=== PATIENT | female | born 1965 | race Caucasian/White ===

== ENCOUNTER → 2019-03-13 11:26 | Outpatient (CLI) | payer OTHER ==
[~2019-03-13] VITALS: Ht 172.7 cm; Wt 83.2 kg
--- NOTE | ~2019-03-13 | HEMODYNAMI ---
PATIENT:CAMILO CERVANTES MEDICAL RECORD: [id number] : 67 LOCATION:DDANILO ADMISSION DATE: 03/13/19 Generatedon:03/13/201915:05 Patient name: CAMILO CERVANTES Patient #: [id number] : 1965 Date of study: 03/13/2019 Page: Of Hemodynamic Procedure Report Patient Data Patient Demographics First Name: CAMILO Gender: Female Last Name: BILLY : 1965 Middle Initial: LATISHA Age: 54 year(s) Patient #: [id number] Race: Unknown SSN: [id number] Additional ID: [id number] Contact details [address]: [address] [place] [address] State: [place] City: [place] Zip code: [address] Past Medical History Allergies Allergen Reaction Date Comments Reported Other allergy 03/13/2019 benzoin Admission Admission Data Admission Date: 03/13/2019 Admission Time: 11:26 Insurance Payor: Private health insurance Height (in.): 69 BSA: 1.99 (m2) Height (cm.): 175.26 BMI: 27.02 (kg/m2) Weight (lbs.): 183 Weight (kg.): 83.01 Lab Results Lab Result Date: 03/13/2019 Lab Result Time: 0:00 Biochemistry Name Units Result Min Max BUN mg/dl 18 --(---*)-- 7 18 Creatinine mg/dl 0.7 --(*---)-- 0.6 1.3 eGFR ml/min 90 --(*---)-- 90 120 NONAFRICAN CBC Name Units Result Min Max Hemoglobin g/dl 13.1 -*(----)-- 13.5 17.5 Procedure Procedure Types Cath Procedure Diagnostic Procedure LHC LHC w/Coronaries Procedure Description Procedure Date Procedure Date: 03/13/2019 Procedure Start Time: 14:51 Procedure End Time: 15:03 Procedure Staff Name Function James Tucker MD Performing Physician Analy Hawkins RT Monitor Anthony Wu RN Nurse Johanna Cash RT Scrub Procedure Data Cath Procedure Fluoroscopy Diagnostic fluoroscopy Total fluoroscopy Time: 3.6 time: 3.6 min min Diagnostic fluoroscopy Total fluoroscopy dose: 280 dose: 280 mGy mGy Contrast Material Contrast Material Type Amount (ml) Isovue 300 49 Entry Location Entry Primary Successful Side Size Upsize Upsize Entry Closure Minaya ccessful Closure Location (Fr) 1 (Fr) 2 (Fr) Remarks Device Remarks Radial Right 6 Fr Mechanical artery Short Compression Estimated blood loss: 5 ml Diagnostic catheters Device Type Used For End Catheter Placement DIAGNOSTIC [place] 110cm 5 Procedure Fr catheter ([id number]) Procedure Complications No complications Procedure Medications Medication Administration Route Dosage Oxygen etCO2 Nasal cannula 2 l/min Lidocaine 2% added to field 20 Heparin Flush Bag added to field 2 bags (1000units/500ml NS) 0.9% NaCl I.V. 100 ml/hr Phenergan 25 mg Zofran I.V. 4 mg Radial Cocktail I.A. 1 syringe (Verapamil 2mg/Nitro 400mcg/Heparin 1500units) Versed I.V. 2 mg Fentanyl I.V. 100 mcg Versed I.V. 2 mg Fentanyl I.V. 25 mcg Hemodynamics Rest BSA: 1.99 (m2) HGB: 13.1 (g/dl) O2 Consumption: Estimated: 185.96 (ml/min) O2 Co nsumption indexed: Estimated:93.45 (ml/min/m) Heart Rate: 61 (bpm) Pressure Samples Time Site Value (mmHg) Purpose Heart Use Rate(bpm) 14:53 LV 100/34,6 Snapshot 134 14:54 AO 90/56(72) Pullback 64 14:54 LV 104/4,13 Pullback 64 Gradients Valve Time Site 1 Site 2 Mean SEP/DFP Peak To Heart Use (mmHg) (sec/min) Peak Rate (mmHg) (bpm) Aortic 14:54 LV AO 12 18 14 64 104/4,13 90/56(72) Calculations Valve P-P Mean Valve Index Valve Source Name Gradient Area Flow (cm2) Aortic 14 12 14 12 Snapshots Pre Cath Intra NCS Post Cath Vital Signs Time Heart Resp SPO2 etCO2 NIBP Rhythm Pain Sedation Rate (ipm) (%) (mmHg) (mmHg) Status Level (bpm) 14:42:29 61 19 100 3 112/72(85) NSR 0 (11) 10(A) , No pain 14:46:39 65 18 99 10.5 102/60(75) NSR 0 (11) 10(A) , No pain 14:50:45 67 13 98 19.5 103/58(79) NSR 0 (11) 10(A) , No pain 14:54:55 61 10 96 21 100/51(75) NSR 0 (11) 9(A) , No pain 14:59:01 65 11 98 22.6 100/55(74) NSR 0 (11) 10(A) , No pain 15:03:03 60 11 99 21 102/57(85) NSR 0 (11) 10(A) , No pain Medications Time Medication Route Dose Verified Delivered Reason Notes Effectiveness by by 14:35:25 Phenergan IM- LT 25 mg James Cruz Per GM. St Christo delcid MD 14:41:39 Oxygen etCO2 2 l/min James Cruz used for Nasal St Christo Wu RN procedure cannula 14:41:47 Lidocaine 2% added 20ml James Ramirez for local to vial [facility] anesthetic field MD BRYAN 14:41:55 Heparin Flush added 2 bags James Ramirez used for Bag to [facility] procedure (1000units/500ml field MD BRYAN NS) 14:42:04 0.9% NaCl I.V. 100 James Cruz Per ml/hr St Christo delcid MD 14:42:35 Zofran I.V. [address] Christo delcid MD 14:50:35 Radial Cocktail I.A. 1 James Ramirez for (Verapamil syringe [facility] vasodilation 2mg/Nitro MD BRYAN 400mcg/Heparin 1500units) 14:51:43 Versed I.V. 2 mg James [address]ie for St Christo Wu RN vasodilation 14:51:50 Fentanyl I.V. 100 mcg James Acevedoie for sedation St Christo Wu RN, MD 14:56:12 Versed I.V. 2 mg James Acevedoie for St Christo Wu RN vasodilation 14:56:19 Fentanyl I.V. 25 mcg James Cruz for sedation St Christo Wu RN, MD Procedure Log Time Note 14:19:20 Patient Height : 69 inches 14:19:37 Patient Weight : 183 lbs 14:19:41 Insurance Payor : Private health insurance 14::55 Lab Result : Creatinine 0.7 mg/dl 14:: Lab Result : BUN 18 mg/dl 14::55 Lab Result : Hemoglobin 13.1 g/dl 14:: Lab Result : eGFR NONAFRICAN 90 ml/min 14:26:09 Diagnostic Cath Status : Elective 14::28 ACC Patient presents with Stable Angina CCS Anginal Class 3--Marked limitation of physical activity, angina occurs with ordinary activity.. 14:27:31 Procedure Status Elective Heart Cath (OP). 14:27:35 Anthony Wu RN sent for patient. Start room use. 14::36 Time tracking: Regular hours (M-F 7:00 - 5:00) 14:27:43 Plan of Care:Hemodynamics will remain stable., Cardiac rhythm will remain stable., Comfort level will be maintained., Respiratory function will remain adequate., Patient/ family verbilizes understanding of procedure., Procedure tolerated without complication., Recovers from procedure without complications.. 14:28:01 H&P Date Dictated: 03/06/2019 Within 30 days and on chart.. 14:28:21 Pre-procedure instructions explained to patient. 14:28:24 Family in waiting room. 14:28:27 Patient NPO since Midnight. 14:28:48 Patient allergic to Other allergybenzoin 14:28:52 Is the patient allergic to Iodine/contrast media? No. 14:28:54 Was the patient premedicated? Yes 14:35:25 Phenergan 25 mg IM- LT GM. was administered by Anthony Wu RN; Per physician; Verbal order read back and verified. 14:41:28 Vital chart was started 14:41:39 Oxygen 2 l/min etCO2 Nasal cannula was administered by Anthony Wu RN; used for procedure; Verbal order read back and verified. 14:41:47 Lidocaine 2% 20ml vial added to field was administered by James Tucker MD; for local anesthetic; Verbal order read back and verified. 14:41:55 Heparin Flush Bag (1000units/500ml NS) 2 bags added to field was administered by James Tucker MD; used for procedure; Verbal order read back and verified. 14:42:04 0.9% NaCl 100 ml/hr I.V. was administered by Anthony Wu RN; Per physician; Verbal order read back and verified. 14:42:35 Zofran 4 mg I.V. was administered by Anthony Wu RN; Per physician; Verbal order read back and verified. 14:43:47 Is patient on blood thinner?No 14:43:54 Patient diabetic? No. 14:44:07 Snore? No 14:44:09 Sleep apnea? No 14:44:23 Airway obstruction? No ? 14:44:28 Dentures? No ? 14:44:39 Patient pain scale 0/10 ?. 14:44:46 IV patent on arrival in right forearm with 0.9% NaCl at [facility]. 14:44:51 Lab results completed and on chart. 14:45:00 Stress Test: no; abnormal ? 14:47:23 Risk of Mortality: .1 14:47:26 Risk of blood transfusion: .1 14:47:29 Risk of ETTA: .6 14:47:33 Right Radial & Right Groin area was prepped with chlora-prep and draped in sterile fashion 14:47:34 Alarms reviewed by R. N. 14:47:34 Sharps counted by scrub and verified by R.N. 14:47:37 Physician paged 14:47:47 1) 90+ Normal kidney functon but urine findings or structural abnormalities or genetic trait point to kidney disease. 14:47:51 Maximum allowable contrast dose (3.7 X eGFR X 0.75)249 ml. 14:47:57 Sedation plan: IV Moderate Sedation Medication:Versed, Fentanyl 14:48:22 Patient received from Pre/Post Procedure Room to CCL 1 Alert and oriented. Tansferred to table in Supine position. 14:48:24 Warm blankets applied, and papo hugger turned on for patient comfort. 14:48:24 Correct patient and procedure confirmed by team. 14:48:25 Baseline sample Acquired. 14:48:25 ECG and BP/O2 sat monitors applied to patient. 14:48:29 Full Disclosure recording started 14:50:35 Radial Cocktail (Verapamil 2mg/Nitro 400mcg/Heparin 1500units) 1 syringe I.A. was administered by James Tucker MD; for vasodilation; Verbal order read back and verified. 14:50:43 Physician arrived 14:50:44 --------ALL STOP TIME OUT------ 14:50:45 Final Timeout: patient, procedure, and site verified with staff and physician. All members of the team are in agreement. 14:50:47 Right Radial & Right Groin site verified by team. 14:50:52 Fire Safety Assessment: A--An alcohol-based skin anteseptic being used preoperatively., C--Open oxygen or nitrous oxide is being used., D--An ESU, laser, or fiber-optic light is being used. 14:50:56 Physical assessment completed. ASA score P 3 - A patient with severe systemic disease as per James Tucker MD. 14:51:00 Use device set Radial Dx or PCI 14:51:02 Procedure started. 14:51:25 Local anesthetic to right radial artery with Lidocaine 2% by James Tucker MD.INITIAL ACCESS ONLY 14:51:35 A 6 Fr Short sheath was inserted into the Right Radial artery 14:51:39 ACIST Syringe (71783) opened to sterile field. 14:51:39 Medline Cath Pack ([id number]) opened to sterile field. 14:51:40 Bag Decanter (2002) opened to sterile field. 14:51:40 ACIST Hand Control (43235) opened to sterile field. 14:51:40 ACIST Manifold (85502) opened to sterile field. 14:51:41 Tegaderm 4 x 4 (1626W) opened to sterile field. 14:51:42 MBrace Wrist Support ([id number]) opened to sterile field. 14:51:43 Versed 2 mg I.V. was administered by Anthony Wu RN; for vasodilation; Verbal order read back and verified. 14:51:45 EMERALD Guide Wire (648-830) opened to sterile field. 14:51:46 SHEATH 6FR RAIN (6693226) opened to sterile field. 14:51:50 Fentanyl 100 mcg I.V. was administered by Anthony Wu RN; for sedation; Verbal order read back and verified. 14:51:52 A DIAGNOSTIC [place] 110cm 5 Fr catheter (511238) was advanced over the wire and used for Procedure. 14:52:15 J wire advanced. 14:52:24 Zero performed for pressure channel P1 14:53:57 LV angiography performed. 14:54:04 EF : 55 % 14:54:10 RCA angiography performed. 14:55:11 Catheter removed. 14:55:59 GUIDE 5FR EBU 3.5 catheter ([id number]) opened to sterile field. 14:56:12 Versed 2 mg I.V. was administered by Anthony Wu RN; for vasodilation; Verbal order read back and verified. 14:56:19 Fentanyl 25 mcg I.V. was administered by Anthony Wu RN; for sedation; Verbal order read back and verified. 14:56:23 LCA angiography performed. 15:01:04 LV gram done using SANDERSON 15:01:13 Catheter removed. 15:01:30 Sheath removed intact; hemostasis achieved with Mechanical Compression to the Right Radial artery. 15:01:33 Procedure ended.(Physican Out) 15:01:50 Fluoroscopy time 03.60 minutes. 15:02:01 Fluoroscopy dose: 280 mGy 15:02:01 Flurop Dose total: 280 15:02:07 Dose Area Product 04504 mGy/cm. 15:02:13 Contrast amount:Isovue 300 49ml. 15:02:16 Maximum allowable dose exceeded? No. 15:02:17 Sharps counted by scrub and verified by R.N. 15:02:23 [place] band inflated with 10cc of air. 15:02:26 Insertion/operative site no bleeding no hematoma. 15:02:29 Post Procedure Pulses reassessed and unchanged 15:02:37 Post-procedure physical assessment completed. ASA score P 2 - A patient with mild systemic disease as per James Tucker MD. 15:02:42 Post procedure rhythm: unchanged. 15:02:49 Estimated blood loss: 5 ml 15:02:51 Post procedure instruction explained to patient.Patient verbalizes understanding. 15:03:00 Procedure and supply charges have been captured, reviewed, submitted and are correct. 15:03:25 Procedure Complication : No complications 15:03:29 Vital chart was stopped 15:03:42 [facility] Findings: mild to moderate CAD (<70%) 15:03:49 See physician's report for complete and final results. 15:03:52 Report given to Pre/Post Procedure Room. 15:03:54 Patient transfered to Pre/Post Procedure Room with Stretcher. 15:03:56 Procedure ended. 15:03:56 Full Disclosure recording stopped 15:04:09 End room use (Document Last) 15:04:26 End room use (Document Last) 15:04:58 End room use (Document Last) Device Usage Item Name Manufacture Quantity Catalog Hospital Part Current Minima l Lot# / Number Charge Number Stock Stock Serial# Code ACIST Acist 1 34940 835833 299431 851312 20 Syringe Medical (18355) Systems Inc Medline Medline 1 [id number] 847813 25287 608682 5 Cath Pack ([id number]) Bag Microtek 1 2001S 049195 40164 758308 5 Decanter Medical Inc. () ACIST Hand Acist 1 18394 956480 360428 679943 5 Control Medical (53315) Systems Inc ACIST Acist 1 39380 176747 237043 684237 5 Manifold Medical (09421) Systems Inc Tegaderm 4 3M 1 1626W 358257 231049 046577 5 x 4 (1626W) MBrace Advanced 1 140-0250-00 167865 59867 240260 5 Wrist Vascular Support Dynamics ([id number]) EMERALD Cardinal 1 502-455 838547 163270 526085 5 Guide Wire Health (502-455) SHEATH 6FR Cardinal 1 9008712 616001 8491813 838075 5 [facility] (9030636) DIAGNOSTIC Terumo 1 40-5318 721831 146598 662708 5 [place] 110cm 5 Fr catheter (766593) GUIDE 5FR Medtronic 1 [id number] 434976 444551 408220 1 EBU 3.5 catheter (BW0XEQ10) Signature Audit [place] Stage Time Signature Unsigned Intra-Procedure 03/13/2019 Analy Hawkins 3:04:26 PM RT(R) Intra-Procedure 03/13/2019 Anthony Wu RN 3:04:58 PM Intra-Procedure 03/13/2019 James Sprague 3:05:48 PM Christo BRYAN [address] [address]
[~2019-03-13 11:26] MED LIST: LEVOTHYROXINE75 MCG PO; TOPROL XL100 MG PO; ZANAFLEX4 MG PO
[2019-03-13 12:06] VITALS: BP 125/68; Ht 172.7 cm; Wt 83.2 kg
[2019-03-13 12:26] LABS: BASOPHILS 0.2 % (0-2); EOSINOPHILS 2.2 % (0-7); HEMATOCRIT 39.3 % (36.0-48.0); HEMOGLOBIN 13.1 g/dL (12-16); IMMATURE GRANULOCYTES 0.2 % (0-5); LYMPHOCYTES 41.9 % (15-50); MCHC 33.3 g/dL (31.0-37.0); MCV 93.1 fL (80.0-100.0); MEAN PLATELET VOLUME 10.5 fL (7.4-10.4); MONOCYTES 6.3 % (2-11); NEUTROPHILS 49.2 % (40-80); PLATELET COUNT 201 10x3/uL (130-400); RBC 4.22 10x6/uL (4.00-5.40); RDW 12.4 % (11.5-14.5); WBC 5.9 10x3/uL (4.8-10.8)
[2019-03-13 12:44] LABS: ALT (SGPT) 35 U/L (10-68); CALC OSMOLALITY 284 mosm/kg (275-300); CARBON DIOXIDE 25.8 mmol/L (21.0-32.0); CHLORIDE - SERUM 107 mmol/L (98-107); CHOL - HDL RATIO 3.2 ratio (2.3-4.1); CHOLESTEROL, TOTAL 168 mg/dL (0-200); CREATININE - SERUM 0.7 mg/dL (0.6-1.3); GLUCOSE 98 mg/dL (74-106); HDL CHOLESTEROL 52 mg/dL (32-96); LDL CHOLESTEROL 98 mg/dL (0-100); LDL-HDL RATIO 1.9 ratio (1.5-3.5); SODIUM 142 mmol/L (136-145); TRIGLYCERIDE 93 mg/dL (30-200); UREA NITROGEN 18 mg/dL (7-18); eGFR NON AFRICAN AMERICAN > 90 mL/min (90-120)
--- NOTE | 2019-03-13 15:30 | NUR ---
R WRIST SOFT, NO BLEEDING OR HEMATOMA. VSS. PULSE OX 95% TO RIGHT INDEX FINGER. FAMILY AT BEDSIDE.
--- NOTE | 2019-03-13 15:45 | NUR ---
R WRIST SOFT, NO BLEEDING OR HEMTOMA. FAMILY AT BEDSIDE. PT RESTING WITH EYES CLOSED, NO C/O. VSS.
--- NOTE | 2019-03-13 16:05 | NUR ---
R WRIST SOFT, NO BLEEDING/HEMATOMA. VSS. 2ML AIR REMOVED FROM ZEPHYR BAND. WILL MONITOR.
--- NOTE | 2019-03-13 16:15 | NUR ---
REMOVED 2 ML AIR FROM ZEPHYR BAND, NOTED IMMEDIATE BLEEDING. ADDED BACK 1 ML, BLEEDING STOPPED. WRIST SOFT. PT ASSISTED HOB UP TO EAT AND DRINK, WILL MONITOR.
--- NOTE | 2019-03-13 16:30 | NUR ---
ONE ML AIR REMOVED FROM ZEPHYR BAND WITH NO FURTHER BLEEDING. CONT MONITORING.
--- NOTE | 2019-03-13 16:41 | NUR ---
REMOVED TWO ML AIR FROM ZEPHYR BAND, FOUR ML REMAIN. NO BLEEDING/HEMATOMA NOTED.
--- NOTE | 2019-03-13 16:56 | NUR ---
AIR RELEASED TO 1ML REMAINING IN ZEPHYR BAND. NO BLEEDING/HEMATOMA NOTED. PT IV REMOVED, TIP INTACT, AND MONITORING DISCONTINUED. MOTHER IN ROOM ASSISTING PT TO DRESS.
--- NOTE | 2019-03-13 17:12 | NUR ---
DRESSING 2X2 AND TEGADERM DRESSING APPLIED TO R WRIST ACCESS SITE.
--- NOTE | 2019-03-13 17:12 | NUR ---
ZEPHYR BAND REMOVED AFTER PT DRESSED, NO BLEEDING OR HEMATOMA. DISCHARGE INSTRUCTIONS AND F/U APPOINTMENT GIVEN TO PT. TO PRIVATE CAR VIA WHEELCHAIR.
--- NOTE | 2019-03-14 16:04 | OP ---
PATIENT NAME: CAMILO CERVANTES MEDICAL RECORD: [id number] :67 LOCATION:D.CAT ADMISSION DATE: SURGEON: ANEESH ESCOTO MD DATE OF OPERATION: 03/13/2019 PROCEDURE: Left heart catheterization, selective coronary angiography, right radial approach. CATHETERS: Radial sheath, [place] catheter. The procedure was well tolerated. The patient returned to [place]. Sheath removed. TR band was placed. FINDINGS: Left ventriculography in 30-degree SANDERSON view: Normal wall motion and normal systolic function. CORONARY ANATOMY: LEFT MAIN: Left main is free of disease. LAD: An area of previous stenting is widely patent. There is intramyocardial septal pyridine recovery operator has about a 70% to 80% stenosis. CIRCUMFLEX: Circumflex free of disease. RIGHT CORONARY ARTERY: Luminal irregularities, but no flow obstructive disease. IMPRESSION: Widely patent stent, no progression of [place] disease. Medical management with risk factor modification. TRANSINT:[id number] Voice Confirmation ID: [id number] DOCUMENT ID: [id number] ANEESH ESCOTO MD at 1604 CC: [id number] DICTATION DATE: 03/13/19 1510 MERCHANT POLICE: 03/13/19 1829 DEP CLI 03/13/19 [id number] [place] [address]
== END | disposition home or self-care (01) ==
LOC: D.CATH 11:26
PROVIDERS: ATTEND Internal Medicine Interventional Cardiology
DX: I25.110 Atherosclerotic heart disease of native coronary artery with unstable angina pectoris (principal); I10 Essential (primary) hypertension

== ENCOUNTER 2019-09-28 19:12 | Emergency (ER) | payer OTHER ==
[~2019-09-28] VITALS: Ht 172.7 cm; Wt 65.0 kg
[2019-09-28 19:18] VITALS: Ht 172.7 cm; Wt 65.0 kg
[2019-09-28] MEDS ORDERED: BUTALB-APAP-CA1 EACH PO (19:22)
[2019-09-28 19:43] LABS: BILIRUBIN NEGATIVE (NEGATIVE); GLUCOSE NEGATIVE (NEGATIVE); KETONE NEGATIVE (NEGATIVE); NITRITE NEGATIVE (NEGATIVE); UROBILINOGEN NORMAL (NORMAL)
[2019-09-28 19:49] LABS: BACTERIA MANY /hpf (NEGATIVE); EPITHELIAL CELLS 0-5 /hpf (0-5); WHITE CELLS - URINE 25-50 /hpf (NEGATIVE)
[2019-09-28 20:02] LABS: HEMATOCRIT 38.9 % (36.0-48.0); HEMOGLOBIN 12.7 g/dL (12-16); MCH 27.5 pg (26.0-34.0); MCHC 32.6 g/dL (31.0-37.0); MCV 84.2 fL (80.0-100.0); MEAN PLATELET VOLUME 10.6 fL (7.4-10.4); PLATELET COUNT 227 10x3/uL (130-400); RBC 4.62 10x6/uL (4.00-5.40); RDW 13.8 % (11.5-14.5); WBC 6.8 10x3/uL (4.8-10.8)
[2019-09-28 20:12] LABS: ANION GAP 14.6 mmol/L (8-16); CALCIUM 9.9 mg/dL (8.5-10.1); CARBON DIOXIDE 25.2 mmol/L (21.0-32.0); POTASSIUM - SERUM 3.8 mmol/L (3.5-5.1)
[2019-09-28 20:23] LABS: ALBUMIN 3.5 g/dL (3.4-5.0); BILIRUBIN - TOTAL 0.29 mg/dL (0.2-1.3); PROTEIN - SERUM 6.5 g/dL (6.4-8.2)
[2019-09-28 20:26] LABS: EOSINOPHILS 5 % (0-7); LYMPHOCYTES 53 % (15-50); MONOCYTES 5 % (2-11); NEUTROPHILS 37 % (40-80); PLATELET ESTIMATE NORMAL
[2019-09-28 20:38] LABS: TROPONIN-I 0.022 ng/mL (0.000-0.060)
[2019-09-28] MEDS ORDERED: BENTYL 20 MG TA20 MG PO (21:25)
[2019-09-28] MEDS ORDERED: ZOFRAN ODT4 MG/UDTAB PO (21:25)
[2019-09-28] MEDS ORDERED: MACROBID100 MG PO (21:25)
[2019-09-28 21:50] VITALS: BP 142/79
== END 2019-09-28 21:50 | disposition home or self-care (01) ==
LOC: D.ER 19:12
PROVIDERS: Family Medicine
DX: N39.0 Urinary tract infection, site not specified (principal); R10.31 Right lower quadrant pain; E07.9 Disorder of thyroid, unspecified; I10 Essential (primary) hypertension; R11.2 Nausea with vomiting, unspecified

== ENCOUNTER 2019-10-02 15:25 | Inpatient (IN) | payer OTHER ==
[~2019-10-02] VITALS: Ht 172.7 cm; Wt 65.9 kg
[~2019-10-02 15:25] MED LIST changes: +BENTYL 20 MG TA20 MG PO; +BUTALB-APAP-CA1 EACH PO; +MACROBID100 MG PO; +ZOFRAN ODT4 MG/UDTAB PO
[2019-10-02 16:28] LABS: BASOPHILS 0 % (0-2); EOSINOPHILS 0.6 % (0-7); HEMATOCRIT 40.6 % (36.0-48.0); HEMOGLOBIN 13.5 g/dL (12-16); IMMATURE GRANULOCYTES 0.1 % (0-5); LYMPHOCYTES 37.8 % (15-50); MCH 27.6 pg (26.0-34.0); MCHC 33.3 g/dL (31.0-37.0); MCV 82.9 fL (80.0-100.0); MEAN PLATELET VOLUME 10.9 fL (7.4-10.4); NEUTROPHILS 54.5 % (40-80); PLATELET COUNT 217 10x3/uL (130-400); RDW 13.3 % (11.5-14.5); WBC 7.8 10x3/uL (4.8-10.8)
[2019-10-02 16:44] LABS: CALC OSMOLALITY 282 mosm/kg (275-300); CARBON DIOXIDE 25.6 mmol/L (21.0-32.0); CHLORIDE - SERUM 104 mmol/L (98-107); CREATININE - SERUM 0.8 mg/dL (0.6-1.3); GLUCOSE 73 mg/dL (74-106); POTASSIUM - SERUM 3.6 mmol/L (3.5-5.1); SODIUM 142 mmol/L (136-145); UREA NITROGEN 16 mg/dL (7-18); eGFR NON AFRICAN AMERICAN 79 mL/min (90-120)
[2019-10-02 16:45] LABS: NITRITE NEGATIVE (NEGATIVE)
[2019-10-02 16:46] LABS: BACTERIA MODERATE /hpf (NEGATIVE); BILIRUBIN NEGATIVE (NEGATIVE); EPITHELIAL CELLS 0-5 /hpf (0-5); GLUCOSE 1000 mg/dL (NEGATIVE); KETONE NEGATIVE (NEGATIVE); RED CELLS - URINE 0-5 /hpf (0-5); UROBILINOGEN NORMAL (NORMAL); WHITE CELLS - URINE 0-5 /hpf (NEGATIVE)
[2019-10-02 16:49] LABS: ALBUMIN 3.5 g/dL (3.4-5.0); ALKALINE PHOSPHATASE 94 U/L (30-120); ALT (SGPT) 39 U/L (10-68); AMYLASE - SERUM 89 U/L (25-115); BILIRUBIN - TOTAL 0.21 mg/dL (0.2-1.3); LIPASE 347 U/L (73-393); MAGNESIUM - SERUM 1.5 mg/dL (1.8-2.4)
[2019-10-02 16:54] LABS: C-REACTIVE PROTEIN 0.2 mg/dL (0.0-0.9)
[2019-10-02 17:54] VITALS: BP 149/65; BMI 21.3
--- NOTE | 2019-10-02 19:57 | NUR ---
PATIENT RESTING IN BED WITH NO S/S OF DISTRESS AND DENIES NEEDS AT THIS TIME. BED IN LOWEST POSITION AND CALL LIGHT WITHIN REACH. ENCOURGED THE PATIENT TO CALL IF SHE HAS NEEDS. WILL CONTINUE TO MONITOR.
[2019-10-02 20:41] VITALS: BP 131/82
--- NOTE | 2019-10-02 21:03 | NUR ---
SPOKE WITH [place]O KWONG IN REGARDS TO TELE UNIT. SERVICE VEHICLE OPERATOR STATED SHE WILL CALL ME BACK AND LET ME KNOW IF A MONITOR IS AVAILABLE.
[2019-10-02 23:29] LABS: INR 1.02 (0.85-1.17); PROTIME 13.4 SECONDS (11.6-15.0)
[2019-10-02 23:30] LABS: D-DIMER-QUANTITATIVE 0.58 ug/mLFEU (0.20-0.54)
[2019-10-02 23:41] LABS: CKMB 0.6 U/L (0.0-3.6); CREATINE KINASE 34 UL (21-215)
[2019-10-02 23:42] LABS: TROPONIN-I < 0.017 ng/mL (0.000-0.060)
[2019-10-02 23:45] VITALS: BP 137/69
[2019-10-03 04:00] VITALS: BP 145/83
[2019-10-03 05:23] LABS: BASOPHILS 0 % (0-2); EOSINOPHILS 2.6 % (0-7); HEMATOCRIT 36.6 % (36.0-48.0); IMMATURE GRANULOCYTES 0.2 % (0-5); LYMPHOCYTES 38.8 % (15-50); MCH 27.3 pg (26.0-34.0); MCHC 32.8 g/dL (31.0-37.0); MCV 83.2 fL (80.0-100.0); MEAN PLATELET VOLUME 10.7 fL (7.4-10.4); MONOCYTES 8.7 % (2-11); NEUTROPHILS 49.7 % (40-80); PLATELET COUNT 182 10x3/uL (130-400); RDW 13.4 % (11.5-14.5)
[2019-10-03 05:49] LABS: WBC 5.4 10x3/uL (4.8-10.8)
[2019-10-03 05:53] LABS: ALKALINE PHOSPHATASE 84 U/L (30-120); ALT (SGPT) 38 U/L (10-68); BILIRUBIN - TOTAL 0.24 mg/dL (0.2-1.3); CALCIUM 9.1 mg/dL (8.5-10.1); CARBON DIOXIDE 24.9 mmol/L (21.0-32.0); CHLORIDE - SERUM 105 mmol/L (98-107); CKMB 0.8 U/L (0.0-3.6); CREATINE KINASE 45 UL (21-215); GLUCOSE 83 mg/dL (74-106); MAGNESIUM - SERUM 1.7 mg/dL (1.8-2.4); POTASSIUM - SERUM 3.8 mmol/L (3.5-5.1); PROTEIN - SERUM 5.6 g/dL (6.4-8.2); SODIUM 139 mmol/L (136-145); TROPONIN-I 0.017 ng/mL (0.000-0.060)
[2019-10-03 05:55] LABS: UREA NITROGEN 10 mg/dL (7-18)
[2019-10-03 05:56] LABS: CALC OSMOLALITY 275 mosm/kg (275-300); CREATININE - SERUM 0.4 mg/dL (0.6-1.3); eGFR NON AFRICAN AMERICAN > 90 mL/min (90-120)
[2019-10-03 06:17] LABS: BILIRUBIN NEGATIVE (NEGATIVE); GLUCOSE NEGATIVE (NEGATIVE); KETONE NEGATIVE (NEGATIVE); NITRITE NEGATIVE (NEGATIVE); SPECIFIC GRAVITY 1.015 (1.005-1.020); UROBILINOGEN NORMAL (NORMAL)
--- NOTE | 2019-10-03 07:49 | NUR ---
ALERT AND ORIENTED. LUNGS CLEAR BILATERALLY. HEART SOUNDS S1 AND S2 HEARD IN ALL QUINTERO. BOWEL SOUNDS ACTIVE X 4. IV TO RFA PATENT WITHOUT REDNESS. DENIES NEEDS. BED LOW. CALL SHELBY AND PERSONAL ITEMS IN REACH. WILL CONTINUE TO MONITOR.
[2019-10-03 08:25] VITALS: BP 135/85
[2019-10-03 09:22] LABS: CKMB 0.8 U/L (0.0-3.6); CREATINE KINASE 33 UL (21-215)
[2019-10-03 09:26] LABS: TROPONIN-I < 0.017 ng/mL (0.000-0.060)
[2019-10-03 12:54] VITALS: BP 164/91
[2019-10-03 13:37] VITALS: Ht 172.7 cm; Wt 65.9 kg
--- NOTE | 2019-10-03 15:24 | NUR ---
PATIENT TAKEN FOR MRI.
[2019-10-03 16:38] VITALS: BP 141/80
--- NOTE | 2019-10-03 19:30 | NUR ---
PT SITTING UP IN BED WITHOUT DISTRESS, AOX4. IV RIGHT FA INFUSING NS @ 75. DENIES NEEDS AT THIS TIME. CL IN REACH, WILL CTM
[2019-10-03 20:00] VITALS: BP 133/79
[2019-10-04] VITALS: BP 133/71
[2019-10-04 05:14] LABS: BASOPHILS 0 % (0-2); EOSINOPHILS 2.8 % (0-7); HEMATOCRIT 37.1 % (36.0-48.0); HEMOGLOBIN 12.3 g/dL (12-16); IMMATURE GRANULOCYTES 0.2 % (0-5); LYMPHOCYTES 41.8 % (15-50); MCH 27.3 pg (26.0-34.0); MCHC 33.2 g/dL (31.0-37.0); MCV 82.4 fL (80.0-100.0); MEAN PLATELET VOLUME 10.5 fL (7.4-10.4); NEUTROPHILS 45.2 % (40-80); PLATELET COUNT 179 10x3/uL (130-400); RDW 13.2 % (11.5-14.5); WBC 5.1 10x3/uL (4.8-10.8)
[2019-10-04 05:27] LABS: CALC OSMOLALITY 272 mosm/kg (275-300); CALCIUM 9.1 mg/dL (8.5-10.1); CARBON DIOXIDE 23.6 mmol/L (21.0-32.0); CHLORIDE - SERUM 103 mmol/L (98-107); GLUCOSE 77 mg/dL (74-106); MAGNESIUM - SERUM 1.4 mg/dL (1.8-2.4); PHOSPHOROUS 4.9 mg/dL (2.5-4.9); POTASSIUM - SERUM 3.5 mmol/L (3.5-5.1); SODIUM 138 mmol/L (136-145); UREA NITROGEN 8 mg/dL (7-18)
[2019-10-04 05:36] LABS: CREATININE - SERUM 0.6 mg/dL (0.6-1.3); eGFR NON AFRICAN AMERICAN > 90 mL/min (90-120)
[2019-10-04 08:44] VITALS: BP 127/82
[2019-10-04 12:08] VITALS: BP 128/83
[2019-10-04 16:07] VITALS: BP 132/96
[2019-10-04 20:00] VITALS: BP 130/77
--- NOTE | 2019-10-04 20:00 | NUR ---
PT SITTING UP IN BEDSIDE CHAIR WITHOUT DISTRESS, AOX4. DENIES PAIN OR NAUSEA AT THIS TIME. TOLERATING REGULAR DIET. DENIES NEEDS. CL IN REACH, WILL CTM
[2019-10-05] VITALS: BP 138/87
[2019-10-05 04:00] VITALS: BP 125/70
[2019-10-05 05:44] LABS: BASOPHILS 0 % (0-2); EOSINOPHILS 3.6 % (0-7); HEMATOCRIT 36.7 % (36.0-48.0); HEMOGLOBIN 11.9 g/dL (12-16); MCH 26.9 pg (26.0-34.0); MCHC 32.4 g/dL (31.0-37.0); MCV 82.8 fL (80.0-100.0); MEAN PLATELET VOLUME 10.4 fL (7.4-10.4); MONOCYTES 8.2 % (2-11); NEUTROPHILS 38.2 % (40-80); PLATELET COUNT 176 10x3/uL (130-400); RBC 4.43 10x6/uL (4.00-5.40); RDW 13.3 % (11.5-14.5); WBC 5.3 10x3/uL (4.8-10.8)
[2019-10-05 05:51] LABS: CALC OSMOLALITY 275 mosm/kg (275-300); CALCIUM 9.1 mg/dL (8.5-10.1); CARBON DIOXIDE 27.9 mmol/L (21.0-32.0); CHLORIDE - SERUM 106 mmol/L (98-107); CREATININE - SERUM 0.6 mg/dL (0.6-1.3); GLUCOSE 78 mg/dL (74-106); MAGNESIUM - SERUM 1.5 mg/dL (1.8-2.4); PHOSPHOROUS 3.9 mg/dL (2.5-4.9); POTASSIUM - SERUM 3.9 mmol/L (3.5-5.1); SODIUM 140 mmol/L (136-145); UREA NITROGEN 8 mg/dL (7-18); eGFR NON AFRICAN AMERICAN > 90 mL/min (90-120)
--- NOTE | 2019-10-05 07:46 | NUR ---
RESTING IN BED WITH EYES CLOSED, EASILY AROUSED TO SPEECH. ALERT AND ORIENTED. IV LOCATED TO RIGHT FOREARM RUNNING NS @ 75ML/HR. NO S/S OF DISTRESS AT THIS TIME, DENIES CURRENT NEEDS, WILL CTM.
[2019-10-05 09:28] VITALS: BP 118/78
[2019-10-05] MEDS ORDERED: LEVOFLOXACIN500 MG PO (11:26)
[2019-10-05] MEDS ORDERED: PROTONIX40 MG PO (11:27)
[2019-10-05] MEDS ORDERED: CARAFATE1 G PO (11:28)
--- NOTE | 2019-10-05 12:30 | MORECARE ---
CASE MANAGEMENT DISCHARGE SUMMARY PATIENT: CAMILO CERVANTES UNIT: [id number] ADM DATE: 10/02/19 AGE: 54 : 67 SEX: F ROOM/BED: D.2215 AUTHOR: GUY ETIENNE PHYSICIAN: REFERRING PHYSICIAN: RENE LIANG DO DATE OF SERVICE: 10/05/19 Discharge Plan Patient Name: CAMILO [facility]ANTES [facility] [facility] 1965 Planned Disposition: Home or Self Care Anticipated Discharge Date: Discharge Date: Expected LOS: Initial Reviewer: [email or web address] Initial Review Date: 10/02/2019 Generated: 10/05/19 1:29 pm DCPIA - Discharge Planning Initial Assessment Updated by [email or web address]: Mary Ellen Joe on 10/05/19 12:29 pm * Is the patient Alert and Oriented? Yes * How many steps to enter\exit or inside your home? * PCP AZUL * [facility]acy [facility] * Preadmission Environment Home with Family * ADLs Independent * Equipment None * List name and contact numbers for known caregivers / representatives who currently or will assist patient after discharge: YAMILA VELA (MOTHER) [phone] * Verbal permission to speak to the caregivers and representatives has been obtained from the patient. N/A * Community resources currently utilized None * Additional services required to return to the preadmission environment? No * Can the patient safely return to the preadmission environment? Yes * Has this patient been hospitalized within the prior 30 days at any hospital? No Patient Name: CAMILO CERVANTES Page [id number] at 1230 All edits/amendments must be made on the electronic document DICTATION DATE: 10/05/19 1229 RESEARCH BIOSTATISTICIAN: ITALO 10/05/19 1229 RPT#: [id number] DC DATE: STATUS: ADM IN [facility] [address] [place] [address] END OF REPORT
--- NOTE | 2019-10-05 12:39 | MORECARE ---
CASE MANAGEMENT DISCHARGE SUMMARY PATIENT: CAMILO CERVANTES UNIT: [id number] ADM DATE: 10/02/19 AGE: 54 : 67 SEX: F ROOM/BED: D.2215 AUTHOR: GUY ETIENNE PHYSICIAN: REFERRING PHYSICIAN: RENE LIANG DO DATE OF SERVICE: 10/05/19 Discharge Plan Patient Name: CAMILO CERVANTES Facility: [facility]:[place] : 1965 Planned Disposition: Home or Self Care Anticipated Discharge Date: Discharge Date: Expected LOS: Initial Reviewer: [email or web address] Initial Review Date: 10/02/2019 Generated: 10/05/19 1:38 pm Comments DCP- Discharge Planning Updated by [email or web address]: Mary Ellen Joe on 10/05/19 11:[address] Patient Name: CAMILO CERVANTES Admission Status: Urgent Accout number: [id number] Admission Date: 10-02-2019 : 1965 Admission Diagnosis:RIGHT UPPER QUADRANT PAIN Attending: RENE LIANG Current LOS: 3 Anticipated DC Date: Planned Disposition: Home or Self Care Primary Insurance: ALMOND [employer] [facility] [place] Discharge Planning Comments: CM met with patient to complete initial dc planning assessment. CM educated patient on the CM role and verbal consent given by patient to complete assessment. Patient lives at home with her adult parents where she is independent with her care. At discharge patient plans to return home and feels this is a safe discharge. CM discussed availability of home health, rehab services, and medical equipment. Her dad will be her otr flatbed driver home. Patient denied known discharge needs at this time. CM will continue to follow and will assist as needed with dc plans/needs. Manager Managed Care: Mary Ellen Joe DCPIA - Discharge Planning Initial Assessment Updated by [email or web address]: Mary Ellen Joe on 10/05/19 12:29 pm * Is the patient Alert and Oriented? Yes * How many steps to enter\exit or inside your home? * PCP AZUL * [facility]acy [facility] * Preadmission Environment Home with Family * ADLs Independent * Equipment None * List name and contact numbers for known caregivers / representatives who currently or will assist patient after discharge: YAMILA VELA (MOTHER) [phone] * Verbal permission to speak to the caregivers and representatives has been obtained from the patient. N/A * Community resources currently utilized None * Additional services required to return to the preadmission environment? No * Can the patient safely return to the preadmission environment? Yes * Has this patient been hospitalized within the prior 30 days at any hospital? No Last DP export: 10/05/19 11:30 am Patient Name: CAMILO CERVANTES Page [phone] at 1239 All edits/amendments must be made on the electronic document DICTATION DATE: 10/05/19 1239 MANUFACTURING PROJECT MANAGER: ITALO 10/05/19 1239 RPT#: [id number] [place] DATE: STATUS: ADM IN [facility] [address] [place] [address] END OF REPORT
--- NOTE | 2019-10-05 17:50 | MORECARE ---
CASE MANAGEMENT DISCHARGE SUMMARY PATIENT: CAMILO CERVANTES UNIT: [id number] ADM DATE: 10/02/19 AGE: 54 : 67 SEX: F ROOM/BED: D.2215 AUTHOR: GUY ETIENNE PHYSICIAN: REFERRING PHYSICIAN: RENE LIANG DO DATE OF SERVICE: 10/05/19 Discharge Plan Patient Name: CAMILO CERVANTES Facility: [facility]:[place] : 1965 Planned Disposition: Home or Self Care Anticipated Discharge Date: Discharge Date: 10/05/2019 Expected LOS: 0 Initial Reviewer: [id number] Initial Review Date: 10/02/2019 Generated: 10/05/19 6:49 pm Comments DCP- Discharge Planning Updated by [email or web address]: Mary Ellen Joe on 10/05/19 11:[address] Patient Name: CAMILO CERVANTES Admission Status: Urgent Accout number: [id number] Admission Date: 10-02-2019 : 1965 Admission Diagnosis:RIGHT UPPER QUADRANT PAIN Attending: RENE LIANG Current LOS: 3 Anticipated DC Date: Planned Disposition: Home or Self Care Primary Insurance: [facility] Discharge Planning Comments: CM met with patient to complete initial dc planning assessment. CM educated patient on the CM role and verbal consent given by patient to complete assessment. Patient lives at home with her adult parents where she is independent with her care. At discharge patient plans to return home and feels this is a safe discharge. CM discussed availability of home health, rehab services, and medical equipment. Her dad will be her courtesy driver home. Patient denied known discharge needs at this time. CM will continue to follow and will assist as needed with dc plans/needs. Shake Backboard Notcher: Mary Ellen Joe DCPIA - Discharge Planning Initial Assessment Updated by [email or web address]: Mary Ellen Joe on 10/05/19 12:29 pm * Is the patient Alert and Oriented? Yes * How many steps to enter\exit or inside your home? * PCP [facility] * Pharmacy [facility] * Preadmission Environment Home with Family * ADLs Independent * Equipment None * List name and contact numbers for known caregivers / representatives who currently or will assist patient after discharge: YAMILA VELA (MOTHER) [phone] * Verbal permission to speak to the caregivers and representatives has been obtained from the patient. N/A * Community resources currently utilized None * Additional services required to return to the preadmission environment? No * Can the patient safely return to the preadmission environment? Yes * Has this patient been hospitalized within the prior 30 days at any hospital? No Last DP export: 10/05/19 11:39 am Patient Name: CAMILO CERVANTES Page [id number] at 1750 All edits/amendments must be made on the electronic document DICTATION DATE: 10/05/191748 DISTRIBUTION SUPERINTENDENT: ITALO 10/05/191748 RPT#: [id number] DC DATE:10/05/19 STATUS: DIS IN [facility] [address] [place] [address] END OF REPORT
== END 2019-10-05 14:42 | disposition home or self-care (01) | DRG 392 ==
LOC: D.SDCHOLD 15:25 → D.MS 15:25
PROVIDERS: Family Medicine; ADMIT Family Medicine; ATTEND Family Medicine
DX: R10.11 Right upper quadrant pain (principal); N39.0 Urinary tract infection, site not specified; I10 Essential (primary) hypertension; I25.10 Atherosclerotic heart disease of native coronary artery without angina pectoris; E83.42 Hypomagnesemia; E03.9 Hypothyroidism, unspecified; R11.2 Nausea with vomiting, unspecified

== ENCOUNTER 2019-11-23 05:46 | Observation (INO) | payer OTHER ==
[~2019-11-23] VITALS: Ht 172.7 cm; Wt 67.3 kg
--- NOTE | ~2019-11-23 | OP ---
PATIENT NAME: CAMILO CERVANTES MEDICAL RECORD: [id number] :[birth year] LOCATION:D.MS [id number] ADMISSION DATE:11/23/19 SURGEON: ERIN SAGE MD DATE OF OPERATION: 11/23/2019 PREOPERATIVE DIAGNOSES: 1. Chronic right upper quadrant abdominal pain. 2. Hypertension. POSTOPERATIVE DIAGNOSES: 1. Chronic right upper quadrant abdominal pain. 2. Hypertension. PROCEDURE: Laparoscopic lysis of adhesions times 120 minutes. SURGEON: Erin Sage MD REPORT OF PROCEDURE: The patient's abdomen was prepped and draped in sterile fashion. A Veress needle was inserted in the left upper quadrant and the abdomen was insufflated. A 5-mm Visiport trocar was inserted in the left lateral abdomen. I could see a large amount of adhesions present at this time. I was not able to clearly visualize the tip of the Veress needle as it was buried in some what appeared to be omental tissue. I went ahead and just removed this catheter. We placed another 5-mm trocar in the patient's left upper quadrant laterally. With this, we were able to take down a significant amount of the adhesions present in the patient's abdomen. The patient had a large amount of adhesions of the small bowel to the anterior abdominal wall and to itself. Most of the adhesions were very thin. We were able to tease most of these down with sharp dissection and blunt dissection. Eventually, we were able to clear the contents off the anterior abdominal wall all the way until we approached the patient's right flank. Once, we had this opened up, then I placed another 5-mm trocar in the patient's right lower quadrant. We continued our dissection and eventually got up to the right upper quadrant epigastric region. The adhesions were much more dense in this area. I eventually had to take these down using sharp dissection and electrocautery. Some of the adhesions were difficult to determine where the planes were and there were a lot of adhesions of the small bowel and omentum from the liver to the anterior abdominal wall and from the omentum to the abdominal wall. Eventually, I got all of these down and at this point, we had clear visualization of the entire anterior abdominal wall. There was no sign of a hernia defect or masses. The patient's pelvis had some adhesions present, but these were left alone since she had no complaints in that area. The patient's colon had a large amount of stool present within it concerning for constipation. The patient's small bowel was visualized. There was no sign of any injury and there was no sign of any bile leakage. The small bowel had a good peristalsis. I did not see any evidence of any dilated small bowel and the colon appeared to be normal in caliber. At this point, I irrigated out the abdomen and any signs of bleeding were treated with electrocautery. At the conclusion of the case, I saw no evidence of any active arterial bleeding. There was some ooze from the omentum and abdominal wall, but this all appeared to be scant. Again, there was no sign of any biliary leakage. The ports and insufflation were then removed. The incisions were infused with a total of 10 mL of 0.25% Marcaine with epinephrine and then the skin incisions were closed with subcutaneous 5-0 Monocryl. COMPLICATIONS: None. OPERATIVE REPORT [id number] CAMILO CERVANTES CONDITION: Stable. ANESTHESIA: General endotracheal and local. BLOOD LOSS: 50 mL. TRANSINT:[id number] Voice Confirmation ID: [id number] DOCUMENT ID: [id number] ERIN SAGE MD CC: RENE LIANG DO [id number] DICTATION DATE: 11/23/19 1144 HOSPICE EXECUTIVE DIRECTOR: 11/23/19 1449 ADM IN [facility] [address] [id number]
[~2019-11-23 05:46] MED LIST changes: +CARAFATE1 G PO; +LEVOFLOXACIN500 MG PO; +PROTONIX40 MG PO; +REGLAN5 MG PO
[2019-11-23 06:19] LABS: BASOPHILS 0.2 % (0-2); EOSINOPHILS 2.6 % (0-7); HEMATOCRIT 42.2 % (36.0-48.0); HEMOGLOBIN 13.8 g/dL (12-16); IMMATURE GRANULOCYTES 0.2 % (0-5); LYMPHOCYTES 43.3 % (15-50); MCH 29.9 pg (26.0-34.0); MCHC 32.7 g/dL (31.0-37.0); MCV 91.5 fL (80.0-100.0); MEAN PLATELET VOLUME 9.4 fL (7.4-10.4); MONOCYTES 8.1 % (2-11); NEUTROPHILS 45.6 % (40-80); RBC 4.61 10x6/uL (4.00-5.40); RDW 17.4 % (11.5-14.5); WBC 9.4 10x3/uL (4.8-10.8)
[2019-11-23 06:24] LABS: PLATELET COUNT 215 10x3/uL (130-400)
[2019-11-23 06:29] LABS: ANION GAP 8.8 mmol/L (8-16); CALCIUM 9.1 mg/dL (8.5-10.1); CARBON DIOXIDE 29.7 mmol/L (21.0-32.0); CREATININE - SERUM 0.9 mg/dL (0.6-1.3); POTASSIUM - SERUM 4.5 mmol/L (3.5-5.1)
[2019-11-23 07:25] VITALS: BP 140/86; BMI 22.5
[2019-11-23] MEDS ORDERED: HYDROCODON-ACE1 EA10 PO (07:30)
--- NOTE | 2019-11-23 14:00 | NUR ---
1343-REPORT GIVEN TO ILAN PULIDO. PT VSS.PAIN 07/10. ABD SOFT NON DISTENDED. NO DISTRESS. DENIES N/V. BANDAIDS X 4 TO ABD CDI.
[2019-11-23 15:29] VITALS: BP 123/69; Ht 172.7 cm; Wt 67.3 kg
--- NOTE | 2019-11-23 15:33 | NUR ---
ASSESSMENT PER ADMIT FLOW SHEET. AWAKENS INT. PATIENT IS WITHOUT SIGNS OF PAIN. LAP SITES X4 TO ABD CDI. ICE CHIPS PROVIDED. CALL LIGHT IN REACH
--- NOTE | 2019-11-23 18:50 | NUR ---
I have reviewed this patient and I concur with the Shift Assessment completed by the Licensed Practical Nurse today this shift.
[2019-11-23 20:00] VITALS: BP 104/67
--- NOTE | 2019-11-23 20:00 | NUR ---
PT SITTING UP IN BED WITHOUT DISTRESS, AOX4. FAMILY AT BEDSIDE. IV RIGHT HAND INFUSING NS @ 50. 4 LAP SITES TO ABD CDI. STATES PAIN 4/10 AT THIS TIME. DENIES NEEDS. CL IN REACH, WILL CTM
--- NOTE | 2019-11-23 23:45 | NUR ---
PT LYING IN BED RESTING, STATES PAIN 10/10. GAVE SCHEDULED TORADOL. DENIES NEEDS. WILL CTM
[2019-11-24] VITALS: BP 95/50
[2019-11-24 04:00] VITALS: BP 116/62
[2019-11-24 06:28] LABS: BASOPHILS 0 % (0-2); EOSINOPHILS 0 % (0-7); HEMATOCRIT 34.7 % (36.0-48.0); IMMATURE GRANULOCYTES 0.2 % (0-5); LYMPHOCYTES 30.8 % (15-50); MCH 28.9 pg (26.0-34.0); MCHC 31.4 g/dL (31.0-37.0); MONOCYTES 8.8 % (2-11); NEUTROPHILS 60.2 % (40-80); RBC 3.77 10x6/uL (4.00-5.40); RDW 17.2 % (11.5-14.5)
[2019-11-24 06:30] LABS: HEMOGLOBIN 10.9 g/dL (12-16); PLATELET COUNT 165 10x3/uL (130-400); WBC 5.7 10x3/uL (4.8-10.8)
[2019-11-24 06:35] LABS: ANION GAP 7.8 mmol/L (8-16); CALCIUM 7.9 mg/dL (8.5-10.1); CARBON DIOXIDE 27.4 mmol/L (21.0-32.0); CREATININE - SERUM 0.9 mg/dL (0.6-1.3); POTASSIUM - SERUM 4.2 mmol/L (3.5-5.1)
--- NOTE | 2019-11-24 07:15 | NUR ---
rec'd in walking round awake and alert. resp even and unlabored with no distress noted or voiced. can express needs and wants. turn and reposition self ab brenda. assessment completed. c/l in reach at bedside.
--- NOTE | 2019-11-24 08:34 | NUR ---
MEDICATED WITH NORCO PER ORDERS FOR C/O ABD PAIN AT THIS TIME. C/L IN REACH AT BEDSIDE.
[2019-11-24 08:49] VITALS: BP 134/75
[2019-11-24] MEDS ORDERED: HYDROCODON-ACE1 EA10 PO (09:24)
--- NOTE | 2019-11-24 11:12 | NUR ---
DC HOME AT THIS TIME IN STABLE CONDITION WITH ALL PERSONAL BELONGING. VOICE UNDERSTANDING OF DC ORDERS.
== END 2019-11-24 11:16 | disposition home or self-care (01) ==
LOC: D.OPS 05:46 → D.MS 06:35 → D.SDCHOLD 06:35 → D.PAN 08:30 → D.OPS 08:30 → OBSVTIME 11:39 → D.MS 14:06
PROVIDERS: ADMIT Surgery; ATTEND Surgery
DX: R10.11 Right upper quadrant pain (principal); I10 Essential (primary) hypertension